=== PATIENT | female | born 1975 | race Caucasian/White ===

== ENCOUNTER → 2019-04-21 16:09 | Outpatient (CLI) | payer OTHER, SELFPAY ==
--- NOTE | ~2019-04-21 | MR_ITS ---
EXAMINATION: MR knee RT wo con DATE: 04/21/2019 16:52 INDICATION: Acute onset generalized right knee pain TECHNIQUE: Magnetic resonance imaging (MRI) of the right knee was performed without intravenous contr ast. Sequences included coronal PD-weighted FSE, coronal PD-weighted FS FSE, sagittal T2-weighted FS E, sagittal PD-weighted FS FSE and axial PD weighted fat saturated FSE. COMPARISON: None. FINDINGS: Medial compartment: Medial meniscus is normal. Articular cartilage is normal. Lateral compartment: Lateral meniscus is normal. Articular cartilage is normal. Patellofemoral compartment: Delamination extending for couple millimeter peripherally into the bone chondral interface at the per iphery of a deep stellate fissure at the central aspect of the patellar apical ridge. Additional deep fissuring with underlying subarticular edema at the inferior aspect of the medial patellar facet. Ap proximately 2-3 mm thick, flat central osteophyte at the site of deep ulceration at the trochlear martin ove and immediately adjacent aspects of the medial and to a lesser degree lateral trochlea. The osteo phyte extends across a region measuring 8 mm craniocaudal and 12 mm medial to lateral. Ligaments and tendons: Anterior and posterior cruciate ligaments are normal. The medial collateral ligament and fibular bella ateral ligament complex are normal. Mild tendinopathy without discrete tear at the distal quadriceps and distal patellar tendons. The visualized medial and lateral hamstring tendons as well as the iliot ibial band are normal. Fluid: Physiologic amount of fluid in the joint space. No loose osteochondral bodies identified. Small Pete 's cyst. Osseous/other: Normal marrow signal aside from the previously noted mild subarticular marrow edema at the inferior a spect of the medial patellar facet. No fracture or pathologic marrow replacing process. IMPRESSION: 1. 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 2. Small Pete's cyst. Reviewed, dictated and finalized at location A. IMPRESSION: 1. 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 2. Small Pete's cyst.
== END ==
PROVIDERS: Visit Provider Specialist
DX: M17.11 Unilateral primary osteoarthritis, right knee (principal); M71.21 Synovial cyst of popliteal space [Baker], right knee
CPT/HCPCS: 73721